=== PATIENT | female | born 1965 | race Caucasian/White ===

== ENCOUNTER 2018-05-16 12:46 | Outpatient (CLI) | payer MEDICARE, SELFPAY ==
--- NOTE | 2018-05-16 12:35 | DI.RPTCT_ITS ---
SYMPTOMS/DIAGNOSIS: ASTHMA, J45.[address]: There are no prior comparison exams. There are no visible emphysematous or fibrotic changes. No infiltrates, effusion or adenopathy is seen. Degenerative changes and scoliosis are noted in the thoracic spine. An incidental calcified nodule is noted at the left lower lobe. The visualized portions of the upper abdomen are unremarkable. IMPRESSION: No evidence of emphysematous or fibrotic changes.
== END 2018-05-16 12:47 ==
PROVIDERS: PCP Family Medicine; Visit Provider Internal Medicine
DX: J45.909 Unspecified asthma, uncomplicated (principal); R91.1 Solitary pulmonary nodule
CPT/HCPCS: 71250